=== PATIENT | male | born 1990 | race African-American/Black ===

== ENCOUNTER 2022-10-08 12:51 | Observation (INO) ==
[2022-10-08 15:50] LABS: Basophils # 0.1 10*3/uL (0.0-0.2); Basophils % 0.8 % (0.0-0.8); Eosinophils # 0.1 10*3/uL (0.0-0.87); Hematocrit 41.2 VOL% (42.0-52.0); Hemoglobin 12.6 GM/DL (14.0-18.0); Immature Granulocytes % 0.4 %; Immature Granulocytes Absolute 0.03 #; Lymphocytes # 2.2 10*3/uL (1.4-4.0); Lymphocytes % 30.7 % (21.2-54.2); Mean Corpuscular HGB Conc 30.6 GM/DL (32-36); Mean Platelet Volume 9.9 FL (9.6-12.0); Monocytes # 0.5 10*3/uL (0.11-0.8); Monocytes % 7.2 % (1.7-12.7); Neutrophils % 59.9 % (38.7-73.9); Platelet Count 296 T/CUMM (130-400); Red Blood Count 6.87 MC/CUMM (3.8-5.5); Red Cell Distribution Width 18.3 % (9.3-17.3); White Blood Count 7.24 T/CUMM (4-12)
[2022-10-08 15:56] LABS: Mucus,Urine Few /LPF (Occasional); RBC,Urine 2 /HPF (0-4); Squamous Epithelial Cell,Urine Occasional /HPF (0-10)
[2022-10-08 15:58] LABS: Urine Appearance Clear (Clear); Urine Color Yellow (Yellow); Urine Specific Gravity 1.025 (1.001-1.035)
[2022-10-08 15:59] LABS: Bilirubin,Urine Small mg/dL (Negative); Blood, Urine Negative (Negative); Glucose,Urine (UA) Negative (Negative); Ketones,Urine Trace mg/dL (Negative); Nitrite,Urine Negative (Negative); Protein,Urine Negative (Negative)
[2022-10-08] MEDS ORDERED: ONDANSETRON 4 MG/2 ML VIAL IV STA (16:06)
[2022-10-08] MEDS ORDERED: SODIUM CHLORIDE 0.9% 1,000 ML IV STA (16:06)
[2022-10-08] MEDS ORDERED: MORPHINE 2 MG/1 ML SYRINGE IV STA (16:06)
[2022-10-08 16:13] LABS: Albumin 4.2 G/DL (3.4-5.0); Bilirubin,Total 1.4 MG/DL (0.20-1.00); Calcium 9.4 MG/DL (8.5-10.1); Osmolality,Calculated 273.7 MOS/KG (273-304); Potassium 3.9 MMOL/L (3.5-5.1); Total Protein 8.2 G/DL (6.4-8.2)
[2022-10-08] MEDS ORDERED: LEVOFLOXACIN INJ 500 MG/100 ML PREMIX IV STA (17:12)
[2022-10-08] MEDS ORDERED: ONDANSETRON 4 MG/2 ML VIAL IV PRN (17:57)
[2022-10-08] MEDS ORDERED: MORPHINE 2 MG/1 ML SYRINGE IV PRN (17:57)
[2022-10-08] MEDS ORDERED: ACETAMINOPHEN 325 MG TABLET PO PRN (17:57)
[2022-10-09] MEDS ORDERED: CLINDAMYCIN INJ 600 MG/50 ML PREMIX IV ONE (07:06)
[2022-10-09] MEDS ORDERED: TISSUE ADHESIVE 1 EACH APPLICATOR TOP ONE (08:58)
[2022-10-09] MEDS ORDERED: BUPIVACAINE MPF 0.25% 10 ML VIAL ONE (08:58)
[2022-10-09] MEDS ORDERED: LIDOCAINE 1%/EPI INJ 20 ML VIAL ONE (08:58)
[2022-10-09] MEDS ORDERED: PANTOPRAZOLE 40 MG TABLET PO SCH (09:00)
[2022-10-09] MEDS ORDERED: INFLUENZA VIRUS VACCINE 0.5 ML SYRINGE IM ONE (09:00)
[2022-10-09] MEDS ORDERED: SEVOFLURANE 1 UNIT/15 MINUTE INH ONE (09:01)
[2022-10-09] MEDS ORDERED: propofoL 200 MG/20 ML VIAL IV ONE (09:01)
[2022-10-09] MEDS ORDERED: LIDOCAINE 2% 5 ML VIAL ONE (09:01)
[2022-10-09] MEDS ORDERED: ONDANSETRON 4 MG/2 ML VIAL ONE (09:01)
[2022-10-09] MEDS ORDERED: PHENYLEPHRINE 1 MG/10 ML SYRINGE IV ONE (09:01)
[2022-10-09] MEDS ORDERED: ROCURONIUM 50 MG/5 ML VIAL IV ONE ×2 (09:01→10:37)
[2022-10-09] MEDS ORDERED: MIDAZOLAM 2 MG/2 ML VIAL ONE (09:02)
[2022-10-09] MEDS ORDERED: fentaNYL 100 MCG/2 ML VIAL ONE ×2 (09:02→10:37)
[2022-10-09] MEDS ORDERED: LACTATED RINGERS 1,000 ML IV SCH (09:30)
[2022-10-09] MEDS ORDERED: DEXAMETHASONE 4 MG/1 ML VIAL ONE (10:14)
[2022-10-09] MEDS ORDERED: ACETAMINOPHEN INJ 1,000 MG/100 ML VIAL IV ONE (10:14)
[2022-10-09] MEDS ORDERED: SUGAMMADEX 200 MG/2 ML VIAL IV ONE (10:53)
[2022-10-09 15:27] VITALS: BP 139/77
== END 2022-10-09 15:57 | disposition home or self-care (01) ==
LOC: N.EDINP 12:51 → N.ED 12:51 → N.EDINP 18:24 → N.3E 18:55
PROVIDERS: ADMIT Surgery; ATTEND Surgery
PROC: LAPCHOL (2022-10-09 09:55)